=== PATIENT | female | born 1970 | race Caucasian/White ===

== ENCOUNTER 2018-09-07 18:08 | Inpatient (IN) | payer BC ==
[~2018-09-07] VITALS: Ht 154.9 cm; Wt 70.8 kg
[2018-09-07] MEDS ORDERED: NITROGLYCERIN 0.4MG TABLET SL SL PRN (20:15)
[2018-09-07] MEDS ORDERED: ASPIRIN 81MG TABLET PO ONE (20:15)
[2018-09-07 20:40] LABS: BASOPHILS % 0.2 % (0.0-2.0); EOSINOPHILS % 1.8 % (0.0-5.0); HEMATOCRIT. 43.3 % (36.0-48.0); HEMOGLOBIN. 14.8 g/dL (12.0-16.0); LYMPHOCYTES % 27.5 % (20.0-50.0); MEAN CORPUSCULAR HEMOGLOBIN 29.9 pg (28.0-32.0); MEAN CORPUSCULAR VOLUME 87.5 fL (81.0-99.0); MEAN PLATELET VOLUME 9.2 fl (7.4-10.4); MONOCYTES % 5.9 % (2.0-8.0); NEUTROPHILS % 64.6 % (40.0-76.0); PLATELET 227 x1000/uL (130-400); RED BLOOD CELL COUNT 4.95 mill/uL (4.2-5.4); RED CELL DISTRIBUTION WIDTH 13.8 % (11.6-14.6)
[2018-09-07 20:45] LABS: CHLORIDE 103 mEq/L (98-107)
[2018-09-07 20:51] LABS: D-DIMER 0.19 mg/L FEU (<0.50); INR 0.9; PARTIAL THROMBOPLASTIN TIME 27.1 sec (23.4-31.0); PROTHROMBIN TIME 9.7 sec (9.6-11.0)
[2018-09-07 23:00] VITALS: BP 148/85
[2018-09-07] MEDS ORDERED: MAGNESIUM/ALUMINUM HYDROXIDE/SIMETHICONE 30ML UDC PO PRN (23:00)
[2018-09-07] MEDS ORDERED: TEMAZEPAM 15MG CAPSULE PO PRN (23:00)
[2018-09-07] MEDS ORDERED: ACETAMINOPHEN 325MG TABLET PO PRN (23:00)
[2018-09-07] MEDS ORDERED: CLONIDINE 0.1MG TABLET PO PRN (23:00)
[2018-09-07] MEDS ORDERED: ONDANSETRON HCL 4MG/2ML INJ IV PRN (23:00)
[2018-09-07] MEDS ORDERED: DIPHENHYDRAMINE 50MG/ML VIAL IV PRN (23:00)
[2018-09-08] VITALS: BP 126/84
[2018-09-08 04:00] VITALS: BP 112/68
[2018-09-08] MEDS: SODIUM CHLORIDE 0.9% INJ 3ML FLUSH IVF SCH ×2 (05:40→13:51)
[2018-09-08 07:54] VITALS: BP 119/65
[2018-09-08] MEDS ORDERED: REGADENOSON 0.4 MG/5 ML IV ONE ×2 (08:00→09:04)
[2018-09-08] MEDS ORDERED: ASPIRIN 81MG EC TABLET PO SCH (09:00)
[2018-09-08] MEDS ORDERED: ASPIRIN 81MG TABLET PO SCH (09:00)
[2018-09-08] MEDS ORDERED: ENOXAPARIN 40MG/0.4ML SYR SUBCUT SCH (09:00)
[2018-09-08 09:40] LABS: LDL CHOLESTEROL 45 mg/dL (5-100)
[2018-09-08 09:43] LABS: HDL CHOLESTEROL 35 mg/dL (40-59); T4 FREE 1.17 ng/dL (0.76-1.46)
[2018-09-08 11:58] VITALS: BP 131/72
[2018-09-08] MEDS ORDERED: IOHEXOL-350 100 ML BOTTLE ONE (15:09)
[2018-09-08 15:38] VITALS: BP 132/84
[2018-09-08 15:51] VITALS: BP 132/84
[2018-09-08 15:56] LABS: CREATINE KINASE 51 IU/L (26-192)
[2018-09-08 15:57] LABS: CREATINE KINASE MB FRACTION < 1.0 ng/mL (0.5-3.6)
[2018-09-08] MEDS ORDERED: FAMOTIDINE 20MG TABLET PO SCH (21:00)
== END 2018-09-08 17:15 | disposition home or self-care (01) | DRG 206 ==
LOC: ER 18:08 → EDBD 18:08 → 5WST 21:16 → EDBEDREQ 21:27 → EDBEDREQTM 21:27 → ENRESERV 21:51
PROVIDERS: ADMIT Internal Medicine; ATTEND Internal Medicine
DX: M94.0 Chondrocostal junction syndrome [Tietze] (principal); E11.9 Type 2 diabetes mellitus without complications; Z83.3 Family history of diabetes mellitus; Z86.718 Personal history of other venous thrombosis and embolism; Z97.5 Presence of (intrauterine) contraceptive device
CPT/HCPCS: 36415; 71045; 71275; 78452; 80061; 82550; 82553; 83036; 83880; 84439; 84443; 84484; 85379; 93005; 93017; 93306; 93970; 99285; A9500; J1650; J2785; Q9967